=== PATIENT | female | born 1960 | race African-American/Black ===

== ENCOUNTER 2025-07-23 10:02 | Inpatient (IN) | payer MEDICARE, OTHER ==
[2025-07-23] MEDS ORDERED: Ondansetron PF 4 MG/2 ML Vial IVP PRN (10:50)
[2025-07-23] MEDS ORDERED: Melatonin 3 MG TAB PO PRN (10:50)
[2025-07-23] MEDS ORDERED: Acetaminophen 325 MG TAB PO PRN (10:50)
[2025-07-23] MEDS ORDERED: Dextrose 50% Abboject 50 ML SYRINGE SLOW IVP PRN (10:53)
[2025-07-23] MEDS ORDERED: Glucagon 1 MG/ML KIT IM PRN (10:53)
[2025-07-23 11:05] VITALS: BMI 37.9
[2025-07-23 11:32] LABS: Troponin I 0.014 ng/mL (< 0.028)
[2025-07-23] MEDS: Famotidine 20 MG TAB PO SCH (20:54)
[2025-07-23] MEDS: Apixaban 5 MG TAB PO SCH (20:54)
[2025-07-24 05:01] LABS: Anion Gap 12 mmol/L (10-20); BUN (Urea Nitrogen) 23 mg/dL (9.8-20.1); Calc. Creatinine Clearance 108 mL/min (70-130); Calcium 9.7 mg/dL (7.8-10.44); Carbon Dioxide 32 mmol/L (23-31); Chloride 102 mmol/L (98-107); Glucose 177 mg/dL (80-115); Potassium 4.0 mmol/L (3.5-5.1); Sodium 142 mmol/L (136-145)
[2025-07-24] MEDS ORDERED: METOPROLOL TARTRATE 100 MG PO SCH (09:00)
[2025-07-24] MEDS ORDERED: PNEUMOC 20-VAL CONJ-DIP CRM/PF 0.5 ML SYRINGE IM ONE (09:00)
[2025-07-24] MEDS: Lisinopril 20 MG TAB PO SCH (10:20)
[2025-07-24] MEDS: Aspirin Chewable 81 MG TAB PO SCH (10:21)
[2025-07-24] MEDS: Furosemide 20 MG TAB PO SCH (10:22)
[2025-07-24 12:11] VITALS: TEMP 98
[2025-07-24 12:32] VITALS: BP 145/88
== END 2025-07-24 12:20 | disposition home or self-care (01) | DRG 310 ==
LOC: CSHTELE 10:36
PROVIDERS: ADMIT Internal Medicine; ATTEND Internal Medicine
DX: I48.0 Paroxysmal atrial fibrillation (principal); I10 Essential (primary) hypertension; E11.9 Type 2 diabetes mellitus without complications; Z98.890 Other specified postprocedural states; E78.5 Hyperlipidemia, unspecified; Z79.899 Other long term (current) drug therapy; Z79.82 Long term (current) use of aspirin
CPT/HCPCS: 36415; 36416; 80048; 83036; 84436; 93005; 93010; 93306

== ENCOUNTER 2025-08-25 04:46 | Emergency (ER) | payer MEDICARE, OTHER ==
[2025-08-25 05:48] LABS: Hematocrit 39.9 % (34.9-44.5); Hemoglobin 13.3 g/dL (12.0-15.5); Mean Corpuscular Hemoglobin 29.5 pg (27.0-33.0); Mean Corpuscular Volume 88.5 fL (81.6-98.3); Platelet Count 249 10x3/uL (150-450); Red Blood Cell (RBC) Count 4.51 10x6/uL (3.90-5.03); White Blood Cell (WBC) Count 9.30 10x3/uL (3.5-10.5)
[2025-08-25 05:51] LABS: ALT (SGPT) 14 U/L (Less than 34); AST (SGOT) 27 U/L (11-34); Albumin 3.8 g/dL (3.1-4.5); Alkaline Phosphatase 58 U/L (40-110); Anion Gap 14 mmol/L (10-20); BUN (Urea Nitrogen) 18 mg/dL (9.8-20.1); Bilirubin, Total 0.3 mg/dL (0.3-1.2); Calc. Creatinine Clearance 0 mL/min (70-130); Calcium 9.7 mg/dL (7.8-10.44); Carbon Dioxide 29 mmol/L (23-31); Chloride 101 mmol/L (98-107); Globulin 3.3 g/dL (2.4-3.5); Glucose 159 mg/dL (80-115); Lipase 17 U/L (8-78); Potassium 3.7 mmol/L (3.5-5.1); Sodium 140 mmol/L (136-145)
[2025-08-25 05:58] LABS: Troponin I Less than 0.010 ng/mL (< 0.028)
[2025-08-25 06:22] LABS: MDiff Complete? YES; Platelet Adequacy Comment Appears Adequate; Poikilocytosis MODERATE=16-30 cells (100X) (0-5/hpf); Stomatocytes MODERATE= 6-15 cells (100X) (0-1/hpf)
== END 2025-08-25 06:14 | disposition home or self-care (01) ==
LOC: CSHERS 04:46
DX: R07.89 Other chest pain (principal); E11.9 Type 2 diabetes mellitus without complications; I10 Essential (primary) hypertension; I48.91 Unspecified atrial fibrillation; Z79.899 Other long term (current) drug therapy; Z79.01 Long term (current) use of anticoagulants; Z79.82 Long term (current) use of aspirin
CPT/HCPCS: 36415; 71045; 80053; 83690; 83880; 84484; 85025; 93005; 94760